=== PATIENT | female | born 1960 | race Caucasian/White ===

== ENCOUNTER 2017-05-02 15:16 | Emergency (ER) | payer OTHER ==
[~2017-05-02] VITALS: Ht 149.9 cm; Wt 90.0 kg
[2017-05-02 16:05] VITALS: BP 146/80; PULSE 70; RESP 18; TEMP 98.4; O2SAT 97
[2017-05-02 16:40] LABS: AMPHETAMINE, URINE NEG (NEG); BARBITURATES, URINE NEG (NEG); COCAINE, URINE NEG (NEG)
[2017-05-02 16:42] LABS: AUTOMATED NEUTROPHIL # 7.9 TH/MM3 (1.8-7.7); BASOPHIL # 0.1 TH/MM3 (0-0.2); BASOPHIL % 0.8 % (0.0-2.0); EOSINOPHIL # 0.2 TH/MM3 (0-0.4); EOSINOPHIL % 1.8 % (0.0-4.0); HEMATOCRIT 46.4 % (35.0-46.0); HEMO FLAGS DIFF FINAL; LYMPH % 22.8 % (9.0-44.0); LYMPHOCYTE # 2.7 TH/MM3 (1.0-4.8); MEAN CELL VOLUME 84.3 FL (80.0-100.0); MEAN CORPUSCULAR HEMOGLOBIN 28.2 PG (27.0-34.0); MEAN CORPUSCULAR HGB CONC 33.4 % (32.0-36.0); MONO % 8.2 % (0.0-8.0); NEUT % 66.4 % (16.0-70.0); PLATELET COUNT 304 TH/MM3 (150-450); RED CELL DISTRIBUTION WIDTH 14.2 % (11.6-17.2)
[2017-05-02 16:49] LABS: ALT (GPT) 31 U/L (10-53); ANION GAP 9 MEQ/L (5-15); AST (GOT) 18 U/L (15-37); BICARBONATE 24.5 MEQ/L (21.0-32.0); BLOOD UREA NITROGEN 10 MG/DL (7-18); CHLORIDE 105 MEQ/L (98-107); GLOMERULAR FILTRATION RATE 91 ML/MIN (>89); POTASSIUM 4.3 MEQ/L (3.5-5.1); SODIUM (NA) 138 MEQ/L (136-145)
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
[2017-05-02 16:52] LABS: ALKALINE PHOSPHATASE 129 U/L (45-117); TOTAL BILIRUBIN ADULT 0.4 MG/DL (0.2-1.0)
[2017-05-02] MEDS ORDERED: CITA40TA4 PO (19:22)
[2017-05-02] MEDS ORDERED: VITA20003 (19:22)
[2017-05-02] MEDS ORDERED: LEVO25TA4 PO (19:22)
[2017-05-02] MEDS ORDERED: [UNRECOGNIZED DRUG - REMARK] (19:22)
[2017-05-02 22:30] VITALS: BP 120/56; PULSE 68; RESP 18; TEMP 97.7; O2SAT 97
[2017-05-03 02:21] VITALS: BP 110/68; PULSE 76; RESP 19; O2SAT 98
[2017-05-03 06:34] VITALS: BP 127/77; PULSE 67; RESP 18
[2017-05-03 10:35] VITALS: BP 121/57; PULSE 64; RESP 16; O2SAT 96
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
== END 2017-05-03 11:59 | disposition home or self-care (01) ==
LOC: NEPD 15:16 → NEPJ 05-03 11:59
DX: F43.21 Adjustment disorder with depressed mood (principal); F20.0 Paranoid schizophrenia
CPT/HCPCS: 80053; 80307; 85025; 99285